=== PATIENT | male | born 1970 ===

== ENCOUNTER → 2023-01-06 | Day surgery (SDC) | payer OTHER ==
[2023-01-01 15:22] VITALS: BMI 26.6
[~2023-01-06] MED LIST: GLYCOPYRROLATE 0.2 MG/1 ML VIAL ONE; MIDAZOLAM HCL 2 MG/2 ML SINGLE DOSE VIAL ONE
== END | disposition home or self-care (01) ==
LOC: JASU-SURG 03:55
PROVIDERS: ATTEND Urology
DX: Z53.8 Procedure and treatment not carried out for other reasons (principal)